=== PATIENT | female | born 1935 | race Caucasian/White ===

== ENCOUNTER → 2017-07-11 | Outpatient (CLI) | payer MEDICARE ==
[~2017-07-11] MED LIST: OMNIPAQUE 350 MG/ML, 150 ML BOTTLE ONE
== END | disposition home or self-care (01) ==
LOC: CFH 08:41
PROVIDERS: ATTEND Urology
DX: N28.1 Cyst of kidney, acquired (principal); K43.9 Ventral hernia without obstruction or gangrene; I72.8 Aneurysm of other specified arteries; I10 Essential (primary) hypertension; Z72.0 Tobacco use; Z90.49 Acquired absence of other specified parts of digestive tract
CPT/HCPCS: 74178; Q9967

== ENCOUNTER 2017-10-21 15:39 | Emergency (ER) | payer MEDICARE ==
[~2017-10-21] VITALS: Ht 149.9 cm; Wt 49.1 kg
[2017-10-21 15:41] VITALS: BP 185/93
[2017-10-21] MEDS ORDERED: METHOCARBAMOL 750 MG TABLET PO ONE ×2 (17:30)
[2017-10-21] MEDS ORDERED: METHOCARBAMOL 750 MG TABLET ONE (17:34)
== END 2017-10-21 18:34 | disposition home or self-care (01) ==
LOC: ED 17:00
DX: M43.16 Spondylolisthesis, lumbar region (principal); M53.3 Sacrococcygeal disorders, not elsewhere classified; I10 Essential (primary) hypertension
CPT/HCPCS: 72220; 99284

== ENCOUNTER 2019-10-13 19:00 | Emergency (ER) | payer MEDICARE ==
[~2019-10-13] VITALS: Ht 149.9 cm; Wt 48.6 kg
[2019-10-13 19:14] VITALS: BP 137/79
[2019-10-13] MEDS ORDERED: METHOCARBAMOL 500 MG TABLET PO ONE (20:00)
[2019-10-13] MEDS ORDERED: KETOROLAC 30 MG/1 ML IM ONE (20:00)
[2019-10-13] MEDS ORDERED: METHOCARBAMOL 500 MG TABLET ONE (20:09)
[2019-10-13] MEDS ORDERED: KETOROLAC 30 MG/1 ML ONE (20:09)
== END 2019-10-13 23:20 | disposition home or self-care (01) ==
LOC: ED 20:00
DX: M54.5 Low back pain (principal)
CPT/HCPCS: 72110; 72131; 96372; 99284; J1885

== ENCOUNTER → 2019-12-31 | Outpatient (CLI) | payer MEDICARE, OTHER ==
[~2019-12-31] MED LIST changes: +CHLO25TA PO; +CHOL10003 PO; +DILT180C32 PO; +LEVO137T3 PO; +LOSA100T14 PO; -OMNIPAQUE 350 MG/ML, 150 ML BOTTLE ONE
[2019-12-31 16:21] LABS: BASOPHILS # (AUTO) 0.04 x10^3/uL (0-0.1); BASOPHILS % (AUTO) 1 % (0-1); EOSINOPHILS # (AUTO) 0.14 x10^3/uL (0-0.4); EOSINOPHILS % (AUTO) 2 % (1-7); LYMPHOCYTES # (AUTO) 2.26 x10^3/uL (1-3.4); LYMPHOCYTES % (AUTO) 35 % (22-44); MD NO; MEAN CORPUSCULAR HEMOGLOBIN 30.9 pg (27.0-34.8); MEAN CORPUSCULAR HGB CONC 33.4 g/dL (32.4-35.8); MEAN CORPUSCULAR VOLUME 92.5 fL (80-100); MEAN PLATELET VOLUME 7.3 fL (7.4-10.4); MONOCYTES # (AUTO) 0.73 x10^3/uL (0.2-0.8); MONOCYTES % (AUTO) 11 % (2-9); NEUTROPHILS # (AUTO) 3.39 x10^3/uL (1.8-6.8); NEUTROPHILS % (AUTO) 52 % (42-75); PLATELET COUNT 338 x10^3/uL (130-400); RED CELL DISTRIBUTION WIDTH 13.3 % (9.6-15.2)
[2019-12-31 16:23] LABS: HCT (SEDRATE) 38.8 % (34.6-47.8)
[2019-12-31 16:24] LABS: INTERNATIONAL NORMALIZED RATIO 0.95 (0.93-1.1); PROTHROMBIN TIME 10.1 Seconds (9.6-11.5)
[2019-12-31 16:25] LABS: MICROSCOPIC AUTO
[2019-12-31 16:26] LABS: ALBUMIN 3.8 g/dL (3.4-5.0); ANION GAP 10 mmol/L (5-15); CALCIUM 9.5 mg/dL (8.5-10.1); CHLORIDE 94 mmol/L (98-107)
[2019-12-31 16:28] LABS: CULTURE INDICATED? NO
[2019-12-31 16:30] LABS: ALANINE AMINOTRANSFERASE 15 U/L (12-78); ALKALINE PHOSPHATASE 66 U/L (45-117); BILIRUBIN,TOTAL 0.3 mg/dL (0.2-1.0); CREATININE 0.94 mg/dL (0.55-1.02); TOTAL PROTEIN 7.6 g/dL (6.4-8.2)
== END | disposition home or self-care (01) ==
LOC: STAR 15:23
PROVIDERS: ATTEND Orthopaedic Surgery Orthopaedic Surgery of the Spine
DX: Z01.818 Encounter for other preprocedural examination (principal); M48.56XA Collapsed vertebra, not elsewhere classified, lumbar region, initial encounter for fracture; J43.9 Emphysema, unspecified
CPT/HCPCS: 36415; 71046; 80053; 80074; 81001; 85025; 85610; 85651; 85730; 87806; 93005; G0475

== ENCOUNTER 2020-01-04 07:27 | Day surgery (SDC) | payer MEDICARE, OTHER ==
[~2020-01-04] VITALS: Ht 149.9 cm; Wt 46.0 kg
[~2020-01-04 07:27] MED LIST changes: +BUPIVACAINE/PF-EPI 0.5% 1:200K ONE; +LIDOCAINE 1%-EPI 1:100K, 20ML ONE
[2020-01-04] MEDS ORDERED: LACTATED RINGERS 1,000 ML IV SCH (08:15)
[2020-01-04 08:22] VITALS: BP 120/74
[2020-01-04] MEDS ORDERED: CHLORHEXIDINE 15 ML UDC MM ONE (08:30)
[2020-01-04] MEDS ORDERED: LIDOCAINE-MPF 1%, 2ML INFIL ONE (08:30)
[2020-01-04] MEDS ORDERED: MIDAZOLAM 1 MG/ML, 2ML ONE (08:57)
[2020-01-04] MEDS ORDERED: FENTANYL PF 250 MCG/5ML ONE (08:57)
[2020-01-04] MEDS ORDERED: SUCCINYLCHOLINE 20 MG/ML, 10ML ONE (09:21)
[2020-01-04] MEDS ORDERED: ONDANSETRON 2MG/ML, 2ML ONE ×2 (09:21→11:12)
[2020-01-04] MEDS ORDERED: PROPOFOL 10 MG/ML, 20ML ONE (09:21)
[2020-01-04] MEDS ORDERED: ROCURONIUM 10 MG/ML,10ML ONE (09:21)
[2020-01-04] MEDS ORDERED: SUGAMMADEX 200 MG/2 ML IVPush ONE (09:21)
[2020-01-04] MEDS ORDERED: CEFAZOLIN 1,000 MG ONE (09:21)
[2020-01-04] MEDS ORDERED: DEXAMETHASONE 4 MG/ML, 1ML ONE (09:21)
[2020-01-04] MEDS ORDERED: OMNIPAQUE 180 MG/ML, 20ML VIAL ONE (10:35)
[2020-01-04] MEDS ORDERED: MEPERIDINE/PF 25MG/0.5ML IVPush PRN (11:00)
[2020-01-04] MEDS ORDERED: DIAZEPAM 5 MG/ML, 2ML IV PRN ×2 (11:00)
[2020-01-04] MEDS ORDERED: KETOROLAC 30 MG/1 ML IV PRN (11:00)
[2020-01-04] MEDS ORDERED: OXYcodone 5 MG/5 ML ORAL.SOL UDC PO PRN (11:00)
[2020-01-04] MEDS ORDERED: ONDANSETRON 2MG/ML, 2ML IVPush PRN (11:00)
[2020-01-04] MEDS ORDERED: PROMETHAZINE 25 MG/ML, 1ML IV PRN (11:00)
[2020-01-04] MEDS ORDERED: LABETALOL 5MG/ML, 20ML IV PRN (11:00)
[2020-01-04] MEDS ORDERED: ALBUTEROL SULFATE 2.5 MG/3 ML NPPB PRN (11:00)
[2020-01-04] MEDS ORDERED: HYDROmorphone 1 MG/ML, 1ML INJ IV PRN (11:00)
[2020-01-04] MEDS ORDERED: hydrALAzine 20 MG/ML, 1ML IV PRN (11:00)
[2020-01-04] MEDS ORDERED: FENTANYL PF 100 MCG/2ML IV PRN (11:00)
[2020-01-04] MEDS ORDERED: METOCLOPRAMIDE 5 MG/ML, 2ML IV PRN (11:00)
[2020-01-04] MEDS ORDERED: SCOPOLAMINE PATCH, 1.5MG PATCH.TD72 TD ONE (11:12)
[2020-01-04] MEDS ORDERED: SCOPOLAMINE 1MG PATCH TD ONE (11:18)
[2020-01-04] MEDS ORDERED: PROMETHAZINE 25 MG/ML, 1ML ONE (11:22)
== END 2020-01-04 14:16 | disposition home or self-care (01) ==
LOC: OUT 07:27
PROVIDERS: ATTEND Orthopaedic Surgery Orthopaedic Surgery of the Spine
DX: S32.018A Other fracture of first lumbar vertebra, initial encounter for closed fracture (principal); M54.5 Low back pain; I10 Essential (primary) hypertension; E06.3 Autoimmune thyroiditis; F17.210 Nicotine dependence, cigarettes, uncomplicated; Z90.710 Acquired absence of both cervix and uterus; Z90.49 Acquired absence of other specified parts of digestive tract; X50.0XXA Overexertion from strenuous movement or load, initial encounter; Y93.89 Activity, other specified; Y92.89 Other specified places as the place of occurrence of the external cause; Y99.8 Other external cause status
CPT/HCPCS: 22514; 72100; 88307; 88311; C1713; J0330; J0690; J1100; J2250; J2405; J2550; J2704; J3010; J3490; J7120; Q9965

== ENCOUNTER 2020-09-05 08:42 | Outpatient (CLI) | payer MEDICARE ==
[~2020-09-05 08:42] MED LIST changes: -BUPIVACAINE/PF-EPI 0.5% 1:200K ONE; +DILT-86 PO; -DILT180C32 PO; -LIDOCAINE 1%-EPI 1:100K, 20ML ONE
== END 2020-09-05 23:59 | disposition home or self-care (01) ==
LOC: CFH 08:42
PROVIDERS: ATTEND Internal Medicine
DX: N63.10 Unspecified lump in the right breast, unspecified quadrant (principal); N64.9 Disorder of breast, unspecified
CPT/HCPCS: 76642; 77062; 77063; 77066; G0279

== ENCOUNTER 2020-09-07 12:25 | Outpatient (CLI) | payer MEDICARE ==
[2020-09-07] MEDS ORDERED: SODIUM BICARBONATE 4.2%, 5ML ONE (14:17)
[2020-09-07] MEDS ORDERED: LIDOCAINE 1%, 20ML ONE (14:17)
[2020-09-07] MEDS ORDERED: LIDOCAINE 1%-EPI 1:100K, 20ML ONE (14:17)
== END 2020-09-07 23:59 | disposition home or self-care (01) ==
LOC: CFH 12:25
PROVIDERS: ATTEND Internal Medicine
DX: C50.412 Malignant neoplasm of upper-outer quadrant of left female breast (principal); N63.11 Unspecified lump in the right breast, upper outer quadrant; R59.1 Generalized enlarged lymph nodes
CPT/HCPCS: 19083; 19084; 38505; 76942; 88305; 88313; 88341; 88342; 88360; 77066

== ENCOUNTER 2020-09-22 09:01 | Outpatient (CLI) | payer MEDICARE ==
[~2020-09-22 09:01] MED LIST changes: +ALEN70TA77 PO; +LEVO112T2 PO; +LIDOCAINE 1%, 20ML ONE; +LIDOCAINE 1%-EPI 1:100K, 20ML ONE; +NICO-486 TD; +PANT40TA6 PO; +POLY17PO5 PO; +SENN-211 PO; +SODI1TAB PO
== END 2020-09-22 23:59 | disposition home or self-care (01) ==
LOC: CFH 09:01
PROVIDERS: ATTEND Surgery
DX: D05.81 Other specified type of carcinoma in situ of right breast (principal); F17.210 Nicotine dependence, cigarettes, uncomplicated; Z88.8 Allergy status to other drugs, medicaments and biological substances; Z91.012 Allergy to eggs; Z79.899 Other long term (current) drug therapy
CPT/HCPCS: 10035; 10036; 19083; 19285; 88305; 77065

== ENCOUNTER 2020-10-13 12:36 | Outpatient (CLI) | payer MEDICARE ==
[~2020-10-13 12:36] MED LIST changes: -LIDOCAINE 1%, 20ML ONE; -LIDOCAINE 1%-EPI 1:100K, 20ML ONE
[2020-10-13] MEDS ORDERED: LEVO125T5 PO (13:25)
== END 2020-10-13 23:59 | disposition home or self-care (01) ==
LOC: STAR 12:36
PROVIDERS: ATTEND Surgery
DX: Z20.822 Contact with and (suspected) exposure to COVID-19 (principal); C50.412 Malignant neoplasm of upper-outer quadrant of left female breast; D48.61 Neoplasm of uncertain behavior of right breast
CPT/HCPCS: 87635

== ENCOUNTER 2020-10-19 07:26 | Day surgery (SDC) | payer MEDICARE ==
[~2020-10-19] VITALS: Ht 149.9 cm; Wt 45.2 kg
[~2020-10-19 07:26] MED LIST changes: +LEVO125T5 PO
[2020-10-19] MEDS ORDERED: ONDANSETRON 2MG/ML, 2ML IVPush PRN (08:30)
[2020-10-19] MEDS ORDERED: PROMETHAZINE 25 MG/ML, 1ML IVPush PRN (08:30)
[2020-10-19] MEDS ORDERED: HYDROmorphone 1 MG/ML, 1ML INJ IVPush PRN (08:30)
[2020-10-19] MEDS ORDERED: MEPERIDINE/PF 25MG/0.5ML IVPush PRN (08:30)
[2020-10-19 08:41] VITALS: BP 146/78
[2020-10-19] MEDS ORDERED: CHLORHEXIDINE 15 ML UDC ONE (08:48)
[2020-10-19] MEDS ORDERED: LACTATED RINGERS 1,000 ML IV SCH (09:00)
[2020-10-19] MEDS ORDERED: CHLORHEXIDINE 15 ML UDC MM ONE (09:00)
[2020-10-19] MEDS ORDERED: LIDOCAINE 1%-EPI 1:100K, 20ML ONE (09:21)
[2020-10-19] MEDS ORDERED: SODIUM BICARBONATE 4.2%, 5ML ONE (09:21)
[2020-10-19] MEDS ORDERED: LIDOCAINE 1%, 20ML ONE (09:21)
[2020-10-19] MEDS ORDERED: ISOSULFAN BLUE 10 MG/ML, 5ML IV ONE (09:52)
[2020-10-19] MEDS ORDERED: BUPIVACAINE/PF 0.5% ONE (09:52)
[2020-10-19] MEDS ORDERED: EPINEPHRINE 1 MG/ML, 1ML ONE (09:52)
[2020-10-19] MEDS ORDERED: FENTANYL PF 100 MCG/2ML ONE ×3 (10:03→14:29)
[2020-10-19] MEDS ORDERED: PROPOFOL 10 MG/ML, 20ML ONE (10:54)
[2020-10-19] MEDS ORDERED: EPHEDRINE 50 MG/ML, 1ML ONE (10:54)
[2020-10-19] MEDS ORDERED: CEFAZOLIN 1,000 MG ONE (10:54)
[2020-10-19] MEDS ORDERED: ONDANSETRON 2MG/ML, 2ML ONE ×2 (10:54→14:08)
[2020-10-19] MEDS ORDERED: DEXAMETHASONE 4 MG/ML, 1ML ONE (10:54)
[2020-10-19] MEDS ORDERED: ROCURONIUM 10 MG/ML,10ML ONE (10:54)
[2020-10-19] MEDS ORDERED: SUGAMMADEX 200 MG/2 ML IVPush ONE (10:54)
[2020-10-19] MEDS ORDERED: HYDR-1067 PO (14:00)
[2020-10-19] MEDS ORDERED: ONDA4TAB7 PO (14:00)
[2020-10-19] MEDS ORDERED: PROMETHAZINE 25 MG/ML, 1ML ONE (14:08)
[2020-10-19] MEDS: FENTANYL PF 100 MCG/2ML IV PRN ×2 (14:30→14:35)
== END 2020-10-19 19:00 | disposition home or self-care (01) ==
LOC: OUT 07:26 → EDSTATUS 10:00 → CFH 19:00
PROVIDERS: ATTEND Surgery
DX: C50.212 Malignant neoplasm of upper-inner quadrant of left female breast (principal); I12.9 Hypertensive chronic kidney disease with stage 1 through stage 4 chronic kidney disease, or unspecified chronic kidney disease; N18.9 Chronic kidney disease, unspecified; E03.9 Hypothyroidism, unspecified; F17.210 Nicotine dependence, cigarettes, uncomplicated; Z88.1 Allergy status to other antibiotic agents; Z88.8 Allergy status to other drugs, medicaments and biological substances; Z91.012 Allergy to eggs; Z79.899 Other long term (current) drug therapy; Z82.49 Family history of ischemic heart disease and other diseases of the circulatory system; Z83.3 Family history of diabetes mellitus; Z90.49 Acquired absence of other specified parts of digestive tract; Z98.890 Other specified postprocedural states
CPT/HCPCS: 14301; 19285; 19301; 19303; 19316; 38792; 76098; 77065; 88305; 88307; 88329; 88333; A9541; C1729; J0171; J0690; J1100; J2405; J2704; J3010

== ENCOUNTER 2020-12-01 08:59 | Outpatient (CLI) | payer MEDICARE ==
[~2020-12-01 08:59] MED LIST changes: +HYDR-1067 PO; +ONDA4TAB7 PO
== END 2020-12-01 23:59 | disposition home or self-care (01) ==
LOC: ROC 08:59
PROVIDERS: ATTEND Radiology Radiation Oncology
DX: C50.212 Malignant neoplasm of upper-inner quadrant of left female breast (principal); I12.9 Hypertensive chronic kidney disease with stage 1 through stage 4 chronic kidney disease, or unspecified chronic kidney disease; N18.9 Chronic kidney disease, unspecified; E03.9 Hypothyroidism, unspecified; Z79.899 Other long term (current) drug therapy; Z98.890 Other specified postprocedural states
CPT/HCPCS: G0463

== ENCOUNTER 2021-03-14 00:10 | Inpatient (IN) | payer MEDICARE ==
[~2021-03-14] VITALS: Ht 149.9 cm; Wt 55.0 kg
[~2021-03-14 00:10] MED LIST changes: -HYDR-1067 PO; +HYDR-2214 PO
--- NOTE | 2021-03-14 00:25 | NUR ---
KIA FROM HOME FOR MGLF. PT LOST BALANCE PUTTING CAT DOWN AND HIT HER HEAD ON THE VACUUM. HEAD AND NECK DOESNT HURT, NO LOC. DENIES CP, SOB, AND HEADACHE. PT REPORTS RIGHT HIP PAIN. PT GIVEN 100MCG OF FENTANYL, 4MG ZOFRAN BRAKE HOLDER. ATTACHED TPO MONITORS, VSS. NADN. BED IN LOW POSITION, RAILS ENGAGED. CALL LIGHT ON LAP. SON AT BEDSIDE.
[2021-03-14] MEDS ORDERED: ONDANSETRON 2MG/ML, 2ML ONE ×2 (01:22→18:09)
[2021-03-14] MEDS ORDERED: MORPHINE SULFATE 4 MG/ML, 1ML ONE (01:22)
--- NOTE | 2021-03-14 01:29 | NUR ---
Patient is resting comfortably in bed. Bed in lowest, rails engaged, call light on lap. Vital Signs within normal limits. WCTM.
[2021-03-14] MEDS ORDERED: SODIUM CHLORIDE FLUSH 10ML SYR IVF ONE (01:30)
[2021-03-14] MEDS ORDERED: ONDANSETRON 2MG/ML, 2ML IVPush ONE (01:30)
[2021-03-14] MEDS ORDERED: MORPHINE SULFATE 4 MG/ML, 1ML IVPush PRN (01:30)
[2021-03-14 01:40] LABS: BASOPHILS % (AUTO) 1 % (0-1); EOSINOPHILS % (AUTO) 1 % (1-7); LYMPHOCYTES % (AUTO) 11 % (22-44); MEAN CORPUSCULAR HEMOGLOBIN 30.5 pg (27.0-34.8); MEAN CORPUSCULAR HGB CONC 33.9 g/dL (32.4-35.8); MEAN PLATELET VOLUME 7.6 fL (7.4-10.4); MONOCYTES % (AUTO) 9 % (2-9); NEUTROPHILS % (AUTO) 78 % (42-75); PLATELET COUNT 260 x10^3/uL (130-400); RED BLOOD COUNT 4.13 x10^6/uL (3.82-5.3); RED CELL DISTRIBUTION WIDTH 14.6 % (9.6-15.2)
[2021-03-14 01:45] LABS: ALBUMIN 3.5 g/dL (3.4-5.0); ANION GAP 4 mmol/L (5-15); CALCIUM 8.6 mg/dL (8.5-10.1); CHLORIDE 104 mmol/L (98-107); CREATININE 0.78 mg/dL (0.55-1.02)
[2021-03-14] MEDS ORDERED: ANAS1TAB49 PO (03:17)
[2021-03-14] MEDS ORDERED: SODIUM CHLORIDE FLUSH 10ML SYR IVF PRN (04:30)
[2021-03-14] MEDS ORDERED: ONDANSETRON 2MG/ML, 2ML IVPush PRN ×3 (05:00→18:00)
--- NOTE | 2021-03-14 05:06 | NUR ---
pt tolerated costa catheter well. pt reattached to monitors. vss. crane. daughter at bedside. costa cathetr sheet filled out for more info. wctm
--- NOTE | 2021-03-14 05:17 | NUR ---
LAST BM LAST NIGHT. MEDIUM BROWN SOFT
--- NOTE | 2021-03-14 05:32 | NUR ---
GAVE REPORT TO GUADALUPE DYER.
[2021-03-14 05:55] VITALS: BP 151/85
[2021-03-14] MEDS: morphine SULFATE 10 MG/ML, 1ML IV PRN ×2 (06:40→10:43)
[2021-03-14 07:17] VITALS: BP 139/51
[2021-03-14] MEDS ORDERED: hydrALAzine 20 MG/ML, 1ML IVPush PRN (08:30)
[2021-03-14] MEDS ORDERED: GABAPENTIN 300 MG CAPSULE PO PRN (08:30)
[2021-03-14] MEDS ORDERED: ACETAMINOPHEN 325 MG TABLET PO PRN ×2 (08:30→18:00)
[2021-03-14] MEDS ORDERED: morphine SULFATE 10 MG/ML, 1ML IVPush PRN (08:30)
[2021-03-14] MEDS ORDERED: BACLOFEN 10 MG TABLET PO PRN (08:30)
[2021-03-14] MEDS ORDERED: MELATONIN 5 MG TABLET PO PRN (08:30)
[2021-03-14] MEDS ORDERED: ONDANSETRON ODT 4 MG PO PRN (08:30)
[2021-03-14] MEDS ORDERED: BISACODYL 10 MG SUPP PR PRN (08:30)
[2021-03-14] MEDS ORDERED: POLYETHYLENE GLYCOL 17 GM PACKET PO PRN (08:30)
[2021-03-14 10:22] LABS: MICROSCOPIC NOT IND
[2021-03-14] MEDS: SENNA/DOCUSATE TABLET PO SCH (10:42)
[2021-03-14] MEDS: NICOTINE 14MG/24 HR PATCH.TD24 TD SCH (10:42)
[2021-03-14] MEDS: D5%-LR+KCL 20MEQ 1,000 ML IV SCH ×2 (10:43→23:50)
[2021-03-14 13:27] VITALS: BP 167/75
[2021-03-14] MEDS ORDERED: PROPOFOL 10 MG/ML, 20ML ONE (17:00)
[2021-03-14] MEDS ORDERED: SUCCINYLCHOLINE 20 MG/ML, 10ML ONE (17:00)
[2021-03-14] MEDS ORDERED: FENTANYL PF 100 MCG/2ML ONE ×2 (17:00→18:09)
[2021-03-14] MEDS ORDERED: CEFAZOLIN 1,000 MG ONE (17:16)
[2021-03-14] MEDS: CEFAZOLIN PMX 1GM/50ML 50 ML IVPB SCH (17:30)
[2021-03-14] MEDS ORDERED: EPINEPHRINE 1 MG/ML, 1ML INFIL ONE (17:55)
[2021-03-14] MEDS ORDERED: BUPIVACAINE/PF 0.5% INFIL ONE (17:55)
[2021-03-14] MEDS ORDERED: HYDROmorphone 1 MG/ML, 1ML INJ IVPush PRN (18:00)
[2021-03-14] MEDS: FENTANYL PF 100 MCG/2ML IV PRN ×3 (18:15→18:41)
[2021-03-14] MEDS ORDERED: hydrALAzine 20 MG/ML, 1ML ONE (18:49)
[2021-03-14] MEDS ORDERED: hydrALAzine 20 MG/ML, 1ML IV PRN (19:00)
[2021-03-14 19:44] VITALS: BP 131/69
[2021-03-14] MEDS: CHOLECALCIFEROL 1,000 UNIT TABLET PO SCH (22:42)
[2021-03-14] MEDS: LOSARTAN 100 MG TAB PO SCH (22:43)
[2021-03-14] MEDS: DILTIAZEM CD 180 MG CAP.ER.24H PO SCH (22:44)
[2021-03-14] MEDS: ANASTROZOLE 1 MG TABLET PO SCH (22:49)
[2021-03-15 00:32] VITALS: BP 150/87
[2021-03-15] MEDS: CEFAZOLIN PMX 1GM/50ML 50 ML IVPB SCH (01:56)
[2021-03-15 03:56] VITALS: BP 127/69
[2021-03-15 05:12] LABS: BASOPHILS % (AUTO) 1 % (0-1); EOSINOPHILS % (AUTO) 0 % (1-7); LYMPHOCYTES % (AUTO) 13 % (22-44); MEAN CORPUSCULAR HEMOGLOBIN 30.8 pg (27.0-34.8); MEAN CORPUSCULAR HGB CONC 33.9 g/dL (32.4-35.8); MEAN PLATELET VOLUME 7.8 fL (7.4-10.4); MONOCYTES % (AUTO) 15 % (2-9); NEUTROPHILS % (AUTO) 71 % (42-75); PLATELET COUNT 220 x10^3/uL (130-400); RED BLOOD COUNT 3.95 x10^6/uL (3.82-5.3); RED CELL DISTRIBUTION WIDTH 14.5 % (9.6-15.2)
[2021-03-15 05:24] LABS: ANION GAP 6 mmol/L (5-15); CALCIUM 8.2 mg/dL (8.5-10.1); CHLORIDE 101 mmol/L (98-107)
[2021-03-15 05:36] LABS: ALANINE AMINOTRANSFERASE 22 U/L (12-78); ALKALINE PHOSPHATASE 40 U/L (45-117); BILIRUBIN,TOTAL 0.6 mg/dL (0.2-1.0); CREATININE 0.63 mg/dL (0.55-1.02); TOTAL PROTEIN 6.3 g/dL (6.4-8.2)
[2021-03-15] MEDS: ENOXAPARIN 40 MG/0.4 ML SQ SCH (05:42)
[2021-03-15 07:32] VITALS: BP 117/61
[2021-03-15] MEDS: SENNA/DOCUSATE TABLET PO SCH (10:41)
[2021-03-15] MEDS: NICOTINE 14MG/24 HR PATCH.TD24 TD SCH (10:41)
[2021-03-15] MEDS: LEVOTHYROXINE 112 MCG TABLET PO SCH (10:41)
[2021-03-15] MEDS ORDERED: MAGNESIUM SULFATE 3 GM in SODIUM CHLORIDE 0.9% 100 ML IV ONE (11:00)
[2021-03-15] MEDS: D5%-LR+KCL 20MEQ 1,000 ML IV SCH (12:07)
[2021-03-15 14:05] VITALS: BP 126/48
[2021-03-15 19:17] VITALS: BP 151/82
[2021-03-15] MEDS: HYDROcodone/APAP 10/325 MG TABLET PO PRN (21:44)
[2021-03-15] MEDS: DILTIAZEM CD 180 MG CAP.ER.24H PO SCH (21:44)
[2021-03-15] MEDS: CHOLECALCIFEROL 1,000 UNIT TABLET PO SCH (21:45)
[2021-03-15] MEDS: LOSARTAN 100 MG TAB PO SCH (21:45)
[2021-03-15] MEDS: ANASTROZOLE 1 MG TABLET PO SCH (21:48)
[2021-03-16 01:55] VITALS: BP 133/73
[2021-03-16] MEDS: D5%-LR+KCL 20MEQ 1,000 ML IV SCH ×3 (04:50→22:59)
[2021-03-16 05:52] LABS: BASOPHILS % (AUTO) 0 % (0-1); EOSINOPHILS % (AUTO) 1 % (1-7); LYMPHOCYTES % (AUTO) 23 % (22-44); MEAN CORPUSCULAR HEMOGLOBIN 31.1 pg (27.0-34.8); MEAN CORPUSCULAR HGB CONC 34.4 g/dL (32.4-35.8); MEAN PLATELET VOLUME 7.9 fL (7.4-10.4); MONOCYTES % (AUTO) 17 % (2-9); NEUTROPHILS % (AUTO) 58 % (42-75); PLATELET COUNT 190 x10^3/uL (130-400); RED BLOOD COUNT 3.68 x10^6/uL (3.82-5.3)
[2021-03-16] MEDS: ENOXAPARIN 40 MG/0.4 ML SQ SCH (05:58)
[2021-03-16] MEDS: LEVOTHYROXINE 112 MCG TABLET PO SCH (05:58)
[2021-03-16 06:01] LABS: ANION GAP 6 mmol/L (5-15); CALCIUM 8.1 mg/dL (8.5-10.1); CHLORIDE 96 mmol/L (98-107); CREATININE 0.59 mg/dL (0.55-1.02)
[2021-03-16] MEDS: HYDROcodone/APAP 10/325 MG TABLET PO PRN ×4 (06:05→22:10)
[2021-03-16 07:36] VITALS: BP 107/65
[2021-03-16] MEDS ORDERED: POTASSIUM CHLORIDE 20 MEQ TAB.ER.PRT PO ONE (10:00)
[2021-03-16] MEDS: SENNA/DOCUSATE TABLET PO SCH (10:48)
[2021-03-16] MEDS: NICOTINE 14MG/24 HR PATCH.TD24 TD SCH (10:49)
[2021-03-16 13:00] VITALS: BP 169/96
[2021-03-16 20:19] VITALS: BP 132/68
[2021-03-16] MEDS ORDERED: LOSARTAN 100 MG TAB PO SCH (21:00)
[2021-03-16] MEDS ORDERED: CHOLECALCIFEROL 1,000 UNIT TABLET PO SCH (21:00)
[2021-03-16] MEDS ORDERED: ANASTROZOLE 1 MG TABLET PO SCH (21:00)
[2021-03-16] MEDS ORDERED: DILTIAZEM CD 180 MG CAP.ER.24H PO SCH (21:00)
[2021-03-16 22:00] VITALS: BP 126/76
[2021-03-17 03:02] VITALS: BP 116/76
[2021-03-17 05:44] LABS: BASOPHILS % (AUTO) 0 % (0-1); EOSINOPHILS % (AUTO) 2 % (1-7); LYMPHOCYTES % (AUTO) 20 % (22-44); MEAN CORPUSCULAR HEMOGLOBIN 30.9 pg (27.0-34.8); MEAN CORPUSCULAR HGB CONC 33.9 g/dL (32.4-35.8); MEAN PLATELET VOLUME 8.3 fL (7.4-10.4); MONOCYTES % (AUTO) 17 % (2-9); NEUTROPHILS % (AUTO) 61 % (42-75); PLATELET COUNT 178 x10^3/uL (130-400); RED BLOOD COUNT 3.42 x10^6/uL (3.82-5.3); RED CELL DISTRIBUTION WIDTH 13.8 % (9.6-15.2)
[2021-03-17] MEDS: ENOXAPARIN 40 MG/0.4 ML SQ SCH (05:48)
[2021-03-17] MEDS: LEVOTHYROXINE 112 MCG TABLET PO SCH (05:48)
[2021-03-17 05:51] LABS: ANION GAP 3 mmol/L (5-15); CALCIUM 8.2 mg/dL (8.5-10.1); CHLORIDE 97 mmol/L (98-107); CREATININE 0.52 mg/dL (0.55-1.02)
[2021-03-17] MEDS: HYDROcodone/APAP 10/325 MG TABLET PO PRN ×3 (06:30→17:13)
[2021-03-17 06:51] VITALS: BP 141/80
[2021-03-17] MEDS: SENNA/DOCUSATE TABLET PO SCH (09:08)
[2021-03-17] MEDS: NICOTINE 14MG/24 HR PATCH.TD24 TD SCH (09:08)
[2021-03-17] MEDS: D5%-LR+KCL 20MEQ 1,000 ML IV SCH (11:30)
[2021-03-17] MEDS ORDERED: SODIUM CHLORIDE 1 GM TABLET PO SCH (13:30)
[2021-03-17] MEDS ORDERED: ACET325T26 PO (13:37)
[2021-03-17] MEDS ORDERED: ONDA4TAB13 PO (13:37)
[2021-03-17] MEDS ORDERED: ENOX40SY4 SQ (13:37)
[2021-03-17] MEDS ORDERED: HYDR1TAB53 PO (13:37)
[2021-03-17] MEDS ORDERED: POLY17PO5 PO (13:37)
[2021-03-17] MEDS ORDERED: NICO-486 TD (13:37)
[2021-03-17] MEDS ORDERED: SENN-211 PO (13:37)
[2021-03-17] MEDS ORDERED: SODI1TAB PO (13:44)
[2021-03-17 14:15] VITALS: BP 123/81
== END 2021-03-17 17:30 | disposition home or self-care (01) | DRG 481 ==
LOC: ED 03:55 → EDIP 04:36 → 4NE 05:51
PROVIDERS: ADMIT Family Medicine; ATTEND Internal Medicine
PROC: 0QS606Z Reposition Right Upper Femur with Intramedullary Internal Fixation Device, Open Approach (ICD-10-PCS; principal; 2021-03-14 17:00)
DX: S72.141A Displaced intertrochanteric fracture of right femur, initial encounter for closed fracture (principal); E87.1 Hypo-osmolality and hyponatremia; C50.911 Malignant neoplasm of unspecified site of right female breast; E06.3 Autoimmune thyroiditis; E83.42 Hypomagnesemia; E87.6 Hypokalemia; F17.200 Nicotine dependence, unspecified, uncomplicated; I10 Essential (primary) hypertension; C50.912 Malignant neoplasm of unspecified site of left female breast; W01.0XXA Fall on same level from slipping, tripping and stumbling without subsequent striking against object, initial encounter; Z80.0 Family history of malignant neoplasm of digestive organs; Z80.3 Family history of malignant neoplasm of breast; Z91.012 Allergy to eggs; Z90.11 Acquired absence of right breast and nipple; Z20.822 Contact with and (suspected) exposure to COVID-19; Z88.8 Allergy status to other drugs, medicaments and biological substances; Y92.89 Other specified places as the place of occurrence of the external cause; Y93.89 Activity, other specified; Y99.8 Other external cause status; M81.0 Age-related osteoporosis without current pathological fracture
CPT/HCPCS: 36415; 71045; 76000; 80048; 80053; 81003; 82040; 83735; 84100; 84443; 85025; 87635; 93005; 96374; 96375; 96376; C1713; G0378; J0171; J0690; J1650; J2405; J2704; J3010; J3475; J0330; J0360; J2270; J3480

== ENCOUNTER 2021-03-21 02:33 | Emergency (ER) | payer MEDICARE ==
[~2021-03-21] VITALS: Ht 149.9 cm; Wt 45.5 kg
[~2021-03-21 02:33] MED LIST changes: +ACET325T26 PO; +ANAS1TAB49 PO; +ENOX40SY4 SQ; +HYDR1TAB53 PO; +ONDA4TAB13 PO
[2021-03-21 03:18] LABS: BASOPHILS % (AUTO) 1 % (0-1); EOSINOPHILS % (AUTO) 2 % (1-7); LYMPHOCYTES % (AUTO) 19 % (22-44); MEAN CORPUSCULAR HEMOGLOBIN 30.7 pg (27.0-34.8); MEAN PLATELET VOLUME 6.8 fL (7.4-10.4); MONOCYTES % (AUTO) 17 % (2-9); NEUTROPHILS % (AUTO) 62 % (42-75); PLATELET COUNT 324 x10^3/uL (130-400); RED BLOOD COUNT 3.67 x10^6/uL (3.82-5.3); RED CELL DISTRIBUTION WIDTH 13.8 % (9.6-15.2)
[2021-03-21 03:27] LABS: ANION GAP 5 mmol/L (5-15); CALCIUM 8.4 mg/dL (8.5-10.1); CHLORIDE 98 mmol/L (98-107); CREATININE 0.67 mg/dL (0.55-1.02)
[2021-03-21 04:39] VITALS: BP 180/81
== END 2021-03-21 05:37 | disposition home or self-care (01) ==
LOC: ED 03:20
DX: M79.651 Pain in right thigh (principal); I10 Essential (primary) hypertension; F17.200 Nicotine dependence, unspecified, uncomplicated
CPT/HCPCS: 36415; 80048; 82040; 85025; 99284

== ENCOUNTER 2021-05-01 10:32 | Outpatient (CLI) | payer MEDICARE ==
[2021-05-01 10:49] LABS: BASOPHILS % (AUTO) 1 % (0-1); EOSINOPHILS % (AUTO) 2 % (1-7); LYMPHOCYTES % (AUTO) 34 % (22-44); MEAN CORPUSCULAR HEMOGLOBIN 30.4 pg (27.0-34.8); MEAN CORPUSCULAR HGB CONC 33.4 g/dL (32.4-35.8); MEAN PLATELET VOLUME 6.7 fL (7.4-10.4); MONOCYTES % (AUTO) 12 % (2-9); NEUTROPHILS % (AUTO) 52 % (42-75); PLATELET COUNT 365 x10^3/uL (130-400); RED BLOOD COUNT 4.24 x10^6/uL (3.82-5.3); RED CELL DISTRIBUTION WIDTH 14.7 % (9.6-15.2)
[2021-05-01 11:01] LABS: ALANINE AMINOTRANSFERASE 13 U/L (12-78); ALBUMIN 3.8 g/dL (3.4-5.0); ANION GAP 8 mmol/L (5-15); CALCIUM 10.1 mg/dL (8.5-10.1); CHLORIDE 100 mmol/L (98-107); CREATININE 0.73 mg/dL (0.55-1.02)
[2021-05-01 11:11] LABS: ALKALINE PHOSPHATASE 72 U/L (45-117); BILIRUBIN,TOTAL 0.5 mg/dL (0.2-1.0); FREE T4 (FREE THYROXINE) 1.19 ng/dL (0.76-1.46); TOTAL PROTEIN 7.7 g/dL (6.4-8.2)
== END 2021-05-01 23:59 | disposition home or self-care (01) ==
LOC: LAB 10:32
PROVIDERS: ATTEND Internal Medicine
DX: M81.0 Age-related osteoporosis without current pathological fracture (principal); E03.9 Hypothyroidism, unspecified; E87.1 Hypo-osmolality and hyponatremia; N18.30 Chronic kidney disease, stage 3 unspecified
CPT/HCPCS: 36415; 80053; 82306; 84439; 84443; 85025